=== PATIENT | female | born 1980 | race Caucasian/White ===

== ENCOUNTER 2016-11-09 16:51 | Emergency (ER) | payer OTHER ==
[2016-11-09] MEDS ORDERED: Sodium Chloride 0.9% 1,000 ML ONE (17:26)
[2016-11-09] MEDS ORDERED: Ondansetron HCl/PF 4 MG/2 ML Vial ONE (17:26)
[2016-11-09 17:49] LABS: #Basophils 0.1 thou/uL (0.0-0.2); #Lymphocytes 1.4 thou/uL (1.20-3.40); #Monocytes 0.3 thou/uL (0.11-0.59); #Neutrophils 3.5 thou/uL (1.40-6.50); %Basophils 1.8 % (0.0-1.0); %Eosinophils 0.9 % (0.0-10.0); %Lymphocytes 25.8 % (21.0-51.0); %Neutrophils 65.6 % (42.0-75.0); Hemoglobin 12.5 g/dL (12.0-16.0); Mean Corpuscular HGB CONC 31.1 g/dL (32.0-36.0); Mean Corpuscular Hemoglobin 29.6 pg (27.0-31.0); Mean Corpuscular Volume 95.2 fl (81.0-99.0); Mean Platelet Volume 7.1 fL (7.4-10.4); Platelet Count 155 thou/uL (130-400); RBC Distribution Width 15.2 % (11.5-14.5); Red Blood Cell (RBC) Count 4.21 mill/uL (4.20-5.40); White Blood Cell (WBC) Count 5.4 thou/uL (4.8-10.8)
[2016-11-09 18:21] LABS: ALT (SGPT) 39 U/L (8-55); AST (SGOT) 36 U/L (5-34); Albumin 3.6 g/dL (3.5-5.0); Alkaline Phosphatase 66 U/L (40-150); Anion Gap 19 mmol/L (10-20); BUN (Urea Nitrogen) 17 mg/dL (7.0-18.7); Bilirubin, Total 0.7 mg/dL (0.2-1.2); Calc. Creatinine Clearance 0 mL/min (70-130); Calcium 10.1 mg/dL (7.8-10.44); Carbon Dioxide 21 mmol/L (22-29); Chloride 99 mmol/L (98-107); Estimated GFR-MDRD 21; Globulin 3.6 g/dL (2.4-3.5); Glucose 93 mg/dL (70-105); Potassium 4.4 mmol/L (3.5-5.1); Protein, Total 7.2 g/dL (6.0-8.3); Sodium 135 mmol/L (136-145)
--- NOTE | 2016-11-09 18:48 | RAD ---
AP VIEW CHEST 11/09/16 HISTORY: Cough. AP view chest is obtained. Cardiomegaly is noted. No evidence of active intrathoracic disease seen. No evidence of effusions, pneumonia or pneumothorax seen. IMPRESSION: Cardiomegaly. POS: [facility]
[2016-11-09] MEDS ORDERED: Acetaminophen 500 MG TAB ONE (18:58)
[2016-11-09 19:02] LABS: Bilirubin Negative (Negative); Blood, Urine Trace (Negative); Clarity Slightly Cloudy (Clear); Glucose, Urine (Dipstick) Negative (Negative); Leukocyte Small (Negative); Nitrite Positive (Negative); Protein, Urine (Dipstick) > or equal to 300 mg/dL (Neg-Trace); Urobilinogen 0.2 mg/dL (0.2-1.0)
[2016-11-09 19:11] LABS: Pregnancy Test - Urine (BHCG) Negative (NEGATIVE); Pregu Control Background? CLEAR/WHITE (CLR/WHITE); Pregu Control Bar Appear? YES (CONTROL BAR)
[2016-11-09 19:12] LABS: Bacteria/HPF 3+ HPF (None Seen); RBC/HPF 0-3 HPF (0-3); Squamous Epithelial 0-3 HPF (0-3)
== END 2016-11-09 19:54 | disposition home or self-care (01) ==
LOC: NAV ERS 16:51
DX: J06.9 Acute upper respiratory infection, unspecified (principal); I12.9 Hypertensive chronic kidney disease with stage 1 through stage 4 chronic kidney disease, or unspecified chronic kidney disease; N18.9 Chronic kidney disease, unspecified; N39.0 Urinary tract infection, site not specified; E03.9 Hypothyroidism, unspecified; E11.9 Type 2 diabetes mellitus without complications; F31.9 Bipolar disorder, unspecified; Z79.899 Other long term (current) drug therapy
CPT/HCPCS: 36415; 51701; 71010; 80053; 81003; 81015; 81025; 85025; 87040; 87077; 87086; 87149; 87186; 96361; 96374; A4353; J2405; J7050

== ENCOUNTER 2017-07-12 02:38 | Emergency (ER) | payer OTHER ==
[2017-07-12] MEDS ORDERED: Ibuprofen 800 MG TAB ONE (03:13)
--- NOTE | 2017-07-12 07:37 | RAD ---
LEFT ANKLE 3 VIEWS: Date: 07/12/17 HISTORY: Injury, left ankle pain. FINDINGS/IMPRESSION: The ankle mortise is maintained. No acute fracture or dislocation is identified. POS: [facility]
--- NOTE | 2017-07-12 07:54 | RAD ---
LEFT FOOT 3 VIEWS: Date: 07/12/17 HISTORY: Pain. Swelling. COMPARISON: None. FINDINGS: There appears to be destructive change and erosion involving the first metatarsal head. There are deg enerative changes in the first metatarsophalangeal joint space. Overall, there is mild bone demineral ization. Lisfranc alignment appears to be maintained. No fracture. There is soft tissue swelling. IMPRESSION: Erosive changes involving the first digit as described above. The possibility of an infectious, infla mmatory arthropathy must be considered. Correlate clinically for gout. CODE T. POS: [facility]
== END 2017-07-12 03:55 | disposition home or self-care (01) ==
LOC: NAV ERS 02:38
DX: S93.402A Sprain of unspecified ligament of left ankle, initial encounter (principal); S93.602A Unspecified sprain of left foot, initial encounter; E78.5 Hyperlipidemia, unspecified; I10 Essential (primary) hypertension; M10.9 Gout, unspecified; E11.9 Type 2 diabetes mellitus without complications; E03.9 Hypothyroidism, unspecified; F31.9 Bipolar disorder, unspecified; E66.01 Morbid (severe) obesity due to excess calories; X50.1XXA Overexertion from prolonged static or awkward postures, initial encounter